=== PATIENT | male | born 1970 | race Caucasian/White ===

== ENCOUNTER 2020-05-05 18:59 | Emergency (ER) | payer MEDICARE, MEDICAID, SELFPAY ==
--- NOTE | 2020-05-05 | ECG_ITS ---
Test Reason : HYPERKALEMIA Blood Pressure : / mmHG Vent. Rate : 080 BPM Atrial Rate : 080 BPM P-R Int : 174 ms QRS Dur : 076 ms QT Int : 378 ms P-R-T Axes : 052 -13 054 degrees QTc Int : 435 ms Normal sinus rhythm Normal ECG When compared with ECG of 02-DEC-2019 17:04, No significant change was found Referred By: Generic ED Physician Electronically Signed By:JOHN PAUL VALENCIA MD
[2020-05-05 19:08] VITALS: BP 157/60; BP 160/90; PULSE 78; PULSE 84; RESP 17; TEMP 36.9; O2SAT 100; O2SAT 97; BMI 33.5
[2020-05-05 19:47] LABS: Glucose, Whole Blood 228 mg/dL (60-115)
--- NOTE | 2020-05-05 19:47 | ED.RECABL ---
HPI - Recheck/Abnormal Lab/Rx General Chief Complaint: Recheck/Abnormal Lab/Rx Stated Complaint: HYPERKALEMIA Time Seen by Provider: 05/05/20 19:44 Source: patient History of Present Illness HPI narrative: 50-year-old female sent in for high potassium. sent in patient for evaluation. Patient emergency department denies nausea vomiting diarrhea. Denies chest pain denies dizziness. Denies any symptoms patient states he used to be on dialysis however not any more and still makes urine Related Data Allergies Allergy/AdvReac Type Severity Reaction Status Date / Time lisinopril [LISINOPRIL] Allergy Unknown UNKNOWN Verified 05/05/20 21:18 Review of Systems Review of Systems: Yes all other systems are reviewed and are negative Constitutional: Comments: Constitutional : No Weight loss, No Fever, No Chills, No Night Sweats, No Fatigue, No Malaise ENT/Mouth : No Hearing loss, No Ear Pain, No Nasal Congestion, No Sinus Pain, No Hoarseness, No sore throat, No Rhinorrhea, No Swallowing Difficulty Eyes: No Eye Pain, No Swelling, No Redness, No Foreign Body, No Discharge, No Vision Changes Cardiovascular : No Chest Pain, No SOB, No Dyspnea on Exertion, No Orthopnea, No Edema, No Palpitations Respiratory : No Cough, No Sputum, No Wheezing, No Smoke Exposure, No Dyspnea Gastrointestinal : No Nausea, No Vomiting, No Diarrhea, No Constipation, No abdominal Pain, No Hematochezia, No Melena Genitourinary : no irregular bleeding, No Dysuria, No Urinary Frequency, No Hematuria, No Urinary Incontinence, No Urgency, No Flank Pain, No Urinary Flow Changes, No Hesitancy Musculoskeletal : No joint pain, No Myalgias, No Joint Swelling Skin : No Skin Lesions, No rash Neuro : No Weakness, No Numbness, No Paresthesias, No Loss of Consciousness, No Dizziness, No Headache Psych : No Anxiety/Panic, No Depression, No SI/HI/AH/VH, No Social Issues, Heme/Lymph: No Bruising, No Bleeding,No Lymphadenopathy Endocrine : No Polyuria, No Polydipsia, No Temperature Intolerance [facility] Past Medical History Attestation statement: The following information was validated with the patient. Medical History Diabetes Mental deficiency Family History Family History (Updated 05/05/20 @ 19:50 by Romario Conrad DO) Other Patient denies medical problems Social History Social History Advance Directives: No Advance Directives Information Provided: Yes Physical Exam Vital Signs and I&O and Narrative: Vital Signs and I&O: Vital Signs Temp 98.5 F 05/05/20 19:08 Pulse 77 05/05/20 21:18 Resp 16 05/05/20 21:18 BP 173/78 H 05/05/20 21:18 Pulse Ox 97 05/05/20 21:18 Intake & Output 05/05/20 05/05/20 05/06/20 06:59 18:59 06:59 Weight 94.347 kg Body Mass Index 33.5 reviewed Const: Other: Appearance: Alert. Oriented X3. No acute distress. Eyes: Pupils equal, round and reactive to light. ENT: Pharynx normal. Neck: Normal inspection. Neck supple. CVS: Normal heart rate and rhythm. Pulses normal. Respiratory: No respiratory distress. Breath sounds normal. Abdomen: Soft and nontender. Skin: Skin warm and dry. Normal skin color. Normal skin turgor. Extremities: No lower extremity edema. No lower extremity edema. Neuro: Oriented X 3. No motor deficit. No sensory deficit. Course Course Course Narrative: will recheck labs reexamined 21:00. Patient no distress. Potassium slightly elevated 5.0 will give p.o. Kayexalate no EKG changes. Doubt severe hyperkalemia requiring immediate dialysis MDM - Recheck/Abnormal Lab/Rx Lab Data Attestation: I reviewed the patient's lab results. Result diagrams: 05/05/20 19:37 05/05/20 19:37 Labs: Lab Results 05/05/20 05/05/20 05/05/20 Range/Units 19:37 19:37 19:37 WBC 3.8 L (4.8-10.8) X10*3/uL RBC 3.69 L (4.60-5.80) X10*6/uL Hgb 10.8 L (14.0-18.0) g/dl Hct 34.5 L (42-52) % MCV 93.5 (80-98) fL MCH 29.3 (27.0-33.0) pg MCHC 31.3 (31.0-36.0) g/dl RDW 14.4 (11.0-16.0) % Plt Count 227 (160-400) X10*3/uL MPV 9.7 (9.4-12.4) fL Absolute Nucleated RBC 0.000 (0.0-0.012) X10*3/uL Nucleated RBC % (auto) 0.0 (0.0-0.2) /100WBC Hold Blue Top SEE NOTE Sodium 138 (135-145) mmol/L Potassium 5.1 (3.3-5.1) mmol/l Chloride 105 (96-108) mmol/L Carbon Dioxide 21 L (22-29) mmol/L Anion Gap 17 (12-20) BUN 77 H (9-16) mg/dL Creatinine 3.53 H (0.5-1.4) mg/dL Estim Creat Clear Calc 27.2 Estimated GFR 19 POC Glucose (60-115) mg/dL Random Glucose 259 H (60-115) mg/dL Calcium 8.0 L (8.4-10.2) mg/dL 05/05/20 Range/Units 19:43 WBC (4.8-10.8) X10*3/uL RBC (4.60-5.80) X10*6/uL Hgb (14.0-18.0) g/dl Hct (42-52) % MCV (80-98) fL MCH (27.0-33.0) pg MCHC (31.0-36.0) g/dl RDW (11.0-16.0) % Plt Count (160-400) X10*3/uL MPV (9.4-12.4) fL Absolute Nucleated RBC (0.0-0.012) X10*3/uL Nucleated RBC % (auto) (0.0-0.2) /100WBC Hold Blue Top Sodium (135-145) mmol/L Potassium (3.3-5.1) mmol/l Chloride (96-108) mmol/L Carbon Dioxide (22-29) mmol/L Anion Gap (12-20) BUN (9-16) mg/dL Creatinine (0.5-1.4) mg/dL Estim Creat Clear Calc Estimated GFR POC Glucose 228 H (60-115) mg/dL Random Glucose (60-115) mg/dL Calcium (8.4-10.2) mg/dL ECG Data Attestation: I personally reviewed and interpreted this ECG as follows: Interpretation: normal sinus rhythm. Rate of 80. Right-sided axis. No ST-T changes Discharge Plan Discharge Clinical Impression: Abnormal blood electrolyte level Patient Disposition: Home, Self-Care Instructions: Hyperkalemia (ED) Additional Instructions: Thank you for visiting the emergency department today. If your symptoms worsen or do not resolve completely please return to the emergency department immediately or call 911. if he have any questions please call your primary care physician your potassium level is 5 in which does not require any emergent treatment at this time please have it repeated by primary care doctor in 2-3 days Referrals: Ketan Sandhu MD [Primary Care Provider] - 2 days Interventions: ED Discharge Assessment Last Done: 05/05/20 21:29 Discharge Date/Time: 05/05/20 21:30
[2020-05-05 19:55] LABS: Hematocrit 34.5 % (42-52); Hemoglobin 10.8 g/dl (14.0-18.0); Mean Corpuscular HGB Conc 31.3 g/dl (31.0-36.0); Mean Corpuscular Hemoglobin 29.3 pg (27.0-33.0); Mean Corpuscular Volume 93.5 fL (80-98); Mean Platelet Volume 9.7 fL (9.4-12.4); Platelet Count 227 X10*3/uL (160-400); Red Blood Count 3.69 X10*6/uL (4.60-5.80); Red Cell Distribution Width 14.4 % (11.0-16.0); White Blood Count 3.8 X10*3/uL (4.8-10.8)
[2020-05-05 20:04] LABS: Anion Gap 17 (12-20); Blood Urea Nitrogen 77 mg/dL (9-16); Carbon Dioxide 21 mmol/L (22-29); Chloride 105 mmol/L (96-108); Creatinine Clr Calc Pharmacy 27.2; Estimated Glomerular Filt Rate 19; Glucose Random 259 mg/dL (60-115); Potassium 5.1 mmol/l (3.3-5.1); Sodium 138 mmol/L (135-145)
[2020-05-05 21:18] VITALS: BP 173/78; PULSE 77; RESP 16; O2SAT 97
[2020-05-05] MEDS: Sodium Polystyrene Sulfon/Sorb 15 GM/60 ML ORAL.SUSP 30 GM PO (21:20)
== END 2020-05-05 21:30 | disposition home or self-care (01) ==
PROVIDERS: Emergency Provider Emergency Medicine; PCP Internal Medicine
DX: E87.5 Hyperkalemia (principal); E11.9 Type 2 diabetes mellitus without complications
CPT/HCPCS: 36415; 80048; 82947; 85027; 93005; 99283